=== PATIENT | male | born 1995 ===

== ENCOUNTER 2018-12-19 10:11 | Emergency (ER) | payer OTHER ==
[~2018-12-19] VITALS: Ht 160 cm; Wt 92.1 kg
== END 2018-12-19 11:53 | disposition home or self-care (01) ==
LOC: ER 10:11
DX: R07.89 Other chest pain (principal); F41.0 Panic disorder [episodic paroxysmal anxiety]

== ENCOUNTER → 2021-03-30 | Emergency (ER) | payer OTHER ==
[~2021-03-30] VITALS: Ht 165.1 cm; Wt 95.3 kg
== END ==
LOC: ER 10:55
DX: U07.1 COVID-19 (principal)

== ENCOUNTER 2021-04-04 04:30 | Emergency (ER) | payer OTHER ==
[~2021-04-04] VITALS: Ht 154.9 cm; Wt 93.0 kg
== END 2021-04-04 12:59 | disposition home or self-care (01) ==
LOC: ER 04:30
DX: R05 Cough (principal); R06.02 Shortness of breath; U07.1 COVID-19